=== PATIENT | female | born 1995 | race Caucasian/White ===

== ENCOUNTER → 2023-07-27 | Outpatient (CLI) | payer BC ==
--- NOTE | 2023-07-27 16:22 | Diagnostic Imaging Report ---
INDICATION: patient, survey. TECHNIQUE: Multiple real-time grayscale images were obtained over the gravid uterus. COMPARISON: None. FINDINGS: There is a single live intrauterine fetus measuring 21 weeks 5 days by composite measurements with sonographic EDC 12/02/2023. The fetus is in breech presentation at this time. Amniotic fluid index is normal at 12.55 cm. Placenta is anterior with no evidence of previa. heart rate is 165 BPM. Maternal adnexa show no free fluid. survey showed normal-appearing bladder. Normal stomach. Intracranial ventricles appeared normal. Four-chamber heart view appeared normal. Three-vessel cord and cord insertion appeared normal. Views of the spine were normal. The kidneys bilaterally show slight prominence of the renal pelves of questionable significance. Biometrical measurements are as follows: Biparietal 5.20 cm, age 21 weeks 6 days. Head circumference 19.30 cm, age 21 weeks 4 days. Abdominal circumference 17.01 cm, age 22 weeks 0 days. Femur length 3.57 cm, age 21 weeks 3 days. Sonographic estimate age: 21 weeks 5 days. Sonographic estimated date of delivery: 12/02/2023. Estimated Weight: 442 gm (+/- 65 gm). LMP percentile: 98%. heart rate: 165 beats per minute. number: 1 of 1. IMPRESSION: Single live intrauterine fetus measuring 21 weeks 5 days in size as described above. There is borderline prominence of the renal pelves of questionable significance, consider follow-up if warranted. Otherwise, unremarkable study. Dictated by: Dictated on workstation # [id number]
== END ==
LOC: RAD 12:51
PROVIDERS: ATTEND Obstetrics & Gynecology
DX: Z36.89 Encounter for other specified antenatal screening (principal); Z3A.21 21 weeks gestation of pregnancy
CPT/HCPCS: 76805